=== PATIENT | male | born 1985 | race Caucasian/White ===

== ENCOUNTER 2019-04-27 18:29 | Emergency (ER) | payer MEDICAID, SELFPAY ==
--- NOTE | ~2019-04-27 | XR_ITS ---
XR foot LT min 3V 04/27/2019 18:57 INDICATION: Left foot pain PROCEDURE: 4 views left foot COMPARISON: No prior studies for comparison. FINDINGS: Fracture, dislocation or subluxation is not identified. Lisfranc joint intact. The soft tis sues appear within normal limits. No foreign bodies are identified. IMPRESSION: 1: NO ACUTE BONE OR JOINT ABNORMALITY IDENTIFIED. Reviewed, dictated and finalized at location A.
[2019-04-27 18:43] VITALS: BP 127/72; PULSE 61; RESP 20; TEMP 36.7; O2SAT 100
--- NOTE | 2019-04-27 19:18 | ED.LOWEXIN ---
HPI - Extremity Injury (Lower) General Chief Complaint: Extremity Injury, Lower Stated Complaint: left foot injury Time Seen by Provider: 04/27/19 18:43 Source: patient Mode of arrival: ambulatory Limitations: no limitations History of Present Illness HPI Narrative: This is a 33 year old male that presents to the ER for left foot pain after an injury 2 days ago. Reports he was rock climbing and pushed off of the wall and landed on his left foot. Reports since he has had swelling and pain in the left 1st metatarsal. Reports swelling and bruising to the area. Denies decreased ROM or numbness. Related Data Allergies Allergy/AdvReac Type Severity Reaction Status Date / Time No Known Allergies Allergy Verified 04/27/19 18:48 Review of Systems Review of Systems: Narrative: CONSTITUTIONAL: Denies fever MUSCULOSKELETAL: Reports joint pain, and myalgia. NEUROLOGIC: Denies numbness, or weakness. All systems reviewed & are unremarkable except as noted in HPI and below PMFSH Family History Family History (Updated 09/12/15 @ 23:19 by DOCTOR UNKNOWN) Grandparent Family history of glaucoma Family history of arthritis Family history of chronic obstructive pulmonary disease Family history of malignant neoplasm of breast Family history of irritable bowel syndrome Diabetes mellitus Father Asthma Mother Asthma Sibling Asthma Social History Social History Smoking status: Never smoker Alcohol intake: current Exam Narrative: Exam Narrative: GENERAL: Well-appearing, well-nourished, and in no acute distress. HEAD: Normocephalic, atraumatic. EYES: EOMI. EXTREMITIES: Normal range of motion. Mild swelling and bruising to the left 1st metatarsal. Normal DP pulses, normal sensation SKIN: Warm, dry, no rash. NEURO: No focal deficits. Alert and oriented x3. PSYCH: Normal mood and affect Course Vital Signs Vital signs: Vital Signs Temperature 98.0 F 04/27/19 18:43 Pulse Rate 61 04/27/19 18:43 Respiratory Rate 20 04/27/19 18:43 Blood Pressure 127/72 04/27/19 18:43 Pulse Oximetry 100 04/27/19 18:43 Temperature 98.0 F 04/27/19 18:43 Pulse Rate 61 04/27/19 18:43 Respiratory Rate 20 04/27/19 18:43 Blood Pressure 127/72 04/27/19 18:43 Pulse Oximetry 100 03/13/20 18:43 MDM - Extremity Injury (Lower) MDM Narrative Medical decision making narrative: Patient presents to the emergency department for left foot injury 2 days ago. Left foot x-ray is without acute changes. Patient will be placed in a postop shoe and reports he has crutches to use at home. He was instructed to ice, elevate and take [id number] pain medication as needed. He is to follow-up with orthopedics. Patient was given warnings to return to the ER Imaging Data Radiologist's impression: ITS Impressions Foot X-Ray 04/27/19 18:58 IMPRESSION: 1: NO ACUTE BONE OR JOINT ABNORMALITY IDENTIFIED. Critical Care Time Critical Care Time Critical Care Time: No Discharge Plan Discharge Clinical Impression: Acute pain of left foot Patient Disposition: Home, Self-Care Condition: Stable Instructions: Foot Sprain (ED) Additional Instructions: Return to the ER if you experience fever, redness and swelling of your leg, or any other symptoms that are concerning to you Wear post op shoe and use crutches. Ice and elevate extremity. Tylenol or Ibuprofen as needed for pain Follow up with orthopedic doctor Follow-up/Referrals: Vinny Banerjee MD [Physician] - 1 Week PHYSICIAN,CUSHION GUM APPLICATOR [Primary Care Provider] -
[2019-04-27 20:27] VITALS: BP 132/80; PULSE 80; RESP 20; TEMP 36.7; O2SAT 99
== END 2019-04-27 20:30 | disposition home or self-care (01) ==
PROVIDERS: Emergency Provider Emergency Medicine
DX: M79.672 Pain in left foot (principal)
CPT/HCPCS: 73630; 99283

== ENCOUNTER 2019-07-20 15:36 | Outpatient (CLI) | payer MEDICAID, SELFPAY ==
--- NOTE | ~2019-07-20 | MR_ITS ---
EXAMINATION: MR foot LT wo con DATE: 07/20/2019 16:21 INDICATION: Left foot pain TECHNIQUE: Magnetic resonance imaging (MRI) of the left fore/mid foot was performed without intraveno us contrast. Sequences included sagittal T1-weighted FSE, sagittal fluid sensitive FSE STIR, coronal PD-weighted FS FSE, coronal T1-weighted FSE, axial PD-weighted FS FSE, and axial PD-weighted FSE. COMPARISON: Radiograph dated 07/12/2019 FINDINGS: There is thickening and increased signal of less than fluid intensity of the medial collateral ligame nt complex at the first metatarsophalangeal joint consistent with moderate grade sprain/partial tear. There is no associated hallux valgus however there does appear to be slight lateral subluxation of t he first metatarsal sesamoids which is more evident on the prior radiographs suggesting the partial t ear includes the medial sesamoid collateral ligament component of the ligament complex. No definitive tear of the plantar plate. The flexor and extensor tendons appear normal. Findings suggest a valgus injury to the first metatarsophalangeal joint. Bone marrow signal is normal. No fracture. Joint space s appear relatively preserved. Physiologic amount fluid in the joint spaces. Intrinsic musculature of the foot is unremarkable. IMPRESSION: 1. Valgus injury pattern at the first metatarsophalangeal joint with partial tear of the medial colla teral ligament complex but without evident involvement of the plantar plate. Reviewed, dictated and finalized at location A. IMPRESSION: 1. Valgus injury pattern at the first metatarsophalangeal joint with partial te ar of the medial collateral ligament complex but without evident involvement of the plantar plate.
== END 2019-07-20 15:37 | disposition home or self-care (01) ==
LOC: ANHIMG 15:37
PROVIDERS: Visit Provider Nurse Practitioner Family
DX: M79.673 Pain in unspecified foot (principal); S93.692A Other sprain of left foot, initial encounter
CPT/HCPCS: 73718

== ENCOUNTER 2019-11-27 12:30 | Outpatient (RCR) | payer OTHER, SELFPAY ==
--- NOTE | 2019-08-31 11:49 | PTOPEVAL ---
Thank you for referring Keith Feliciano to [facility]. Please review, sign, date and return this plan of care KOTA. Pt referred to therapy to address leg impairments related to foot injury. He demonstrates ankle weakness, decreased ankle and foot range, increased pain and decreased performance with daily activities. Recommend additional PT 2x/wk x 4-6 wk. I agree with and certify that the following plan of care is medically necessary. Referring Physician Date Attending Provider: Vinny Banerjee MD *PT Outpatient Evaluation Start: 08/31/19 09:04 Freq: Status: Active Protocol: Document 08/31/19 09:05 AQUILES (Rec: 08/31/19 09:44 CAP [id number]) Therapy Assessment Status Assessment Status Assessment Status Evaluation Outpatient Past Medical History Past Medical History Source of Past Medical History Patient Respiratory History Hx Asthma Yes Musculoskeletal History Hx Other Musculoskeletal Disorders Yes: left hallux valgus injry for 1st MTP joint Evaluation Information Problem Diagnosis left hallux valugs Onset 04/23/19 Cause rock climbing Additional Evaluation Detail 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 He wears the bunion corrector when working. He is not able to wear the boot. Subjective Information He was rocking climb when 90% Query Text:As Reported By Patient/ of his body weight went into Family his left foot, specifically his great toe. He felt pain of his great toe with decreased stability. He was in a fracture walking boot for 3 wks. He was then given a gel bunion corrector to wear after the boot. He had f/u with MD who recommend therapy to see if surgery can be avoided. He also rides a road bike with clip in shoes. He rode 7 miles this week with min pain during the ride. He reports increased pain with walking with a normal gt. He works on his feet with increased pain and inability to wear the walking boot at work. He is working limited hours due to COVID. Diagnostic Tests X-Rays For
--- NOTE | 2019-09-24 10:52 | PCPTNOTE ---
Patient called & cancelled scheduled appointment this date needing to reschedule for Tuesday.
--- NOTE | 2019-09-28 16:33 | PCPTNOTE ---
Patient called & cancelled scheduled appointment this date due to being to sore from over doing it the day before.
--- NOTE | 2019-10-01 16:55 | PTOPEVAL ---
Thank you for referring Keith Feliciano to [facility].? The patient is scheduled to be seen for therapy? 1 x/week for 3 weeks. Please review, sign, date and return this plan of care KOTA. I agree with and certify that the following plan of care is medically necessary. Referring Physician Date Attending Provider: Vinny Banerjee MD Physical therapy progress note *PT Outpatient Evaluation Start: 08/31/19 09:04 Freq: Status: Active Protocol: Document 10/01/19 14:35 AQUILES (Rec: 10/01/19 15:23 CAP [id number]) Therapy Assessment Status Assessment Status Assessment Status Re-evaluation Outpatient Past Medical History Past Medical History Source of Past Medical History Patient Respiratory History Hx Asthma Yes Musculoskeletal History Hx Other Musculoskeletal Disorders Yes: left hallux valgus injry for 1st MTP joint Evaluation Information Problem Diagnosis left hallux valugs Onset 04/23/19 Cause rock climbing Additional Evaluation Detail 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 He wears the bunion corrector when working. He is not able to wear the boot. Subjective Information He is riding for short Query Text:As Reported By Patient/ distances on the bike without Family increased foot pain. He had increased pain when attempting to rock climb. He will have occasional pain in the foot with walking. Reports the tenderness of bottom of foot has improved. Cont pain on medial aspect of foot and great toe. He reports decreased great toe motion. He reports the more supportive shoe will decrease his foot/ toe pain. Reports the muscle spasms have improved, but cont to feel weak. He is working 2-3 days a week. He denies any significant changes in his pain. Pain Assessment Timing of Pain Assessment Timing of Pain Assessment Re-assessment Pain Scale Pain Scale Used Numeric (1 - 10) Self Report Pain Assessment Left Toe, 1st Reported Pain Level 1 Pain Description Aching Pain Frequency Intermittent Lowest Pain Intensity 0
--- NOTE | 2019-10-23 09:34 | PTOPEVAL ---
Thank you for referring Keith Feliciano to [facility].?Pt has received 11 therapy visits to address his toe/foot injury. He has achieved his therapy goals for this region with improved tolerance with fitness activities. DC skilled therapy for addressing his foot injury. He will be assessed next week for his back/SIJ pain. Please review, sign, date and return this plan of care KOTA. I agree with and certify that the following plan of care is medically necessary. 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 He wears the bunion corrector when working. He is not able to wear the boot. Subjective Information He is riding for short Query Text:As Reported By Patient/ distances on the bike without Family increased foot pain. He is able to perform rock climbing without increase pain, but he has not attempted to push into harder positions. He denies pain with walking. Reports slight pain when he places all of his weight on the ball of his foot/great toe region. He reports decreased great toe DF motion compared to right. Denies any problems with prolonged walking or standing. He has not tried a 10 mile hike. Pain Assessment Timing of Pain Assessment Timing of Pain Assessment Re-assessment Pain Scale Pain Scale Used Numeric (1 - 10) Self Report Pain Assessment Left Toe, 1st Reported Pain Level 0 Pain Description Sharp Pain Frequency Intermittent Lowest Pain Intensity 0 Greatest Pain Intensity 3 Pain Score Pain Score 0: Self Report Lower Extremity Range of Motion Ankle/Foot Range of Motion Right Ankle Dorsiflextion With Knee Extension 18 Range of Motion - Active Ankle Plantarflexion Range of Motion - 50 Active
--- NOTE | 2019-10-29 15:34 | PTOPEVAL ---
Thank you for referring Keith Feliciano to [facility].? Pt seen for initial evaluation for back pain. The patient is scheduled to be seen for therapy? 1 x/week for 6-8 weeks. Please review, sign, date and return this plan of care KOTA. I agree with and certify that the following plan of care is medically necessary. Referring Physician Date Attending Provider: Vinny Banerjee MD/ SANAM Castillo Physical Therapy evaluation for back *PT Outpatient Evaluation Start: 08/31/19 09:04 Freq: Status: Active Protocol: Document 10/29/19 09:00 AQUILES (Rec: 10/29/19 09:55 CAP [id number]) Therapy Assessment Status Assessment Status Assessment Status Evaluation Outpatient Past Medical History Past Medical History Source of Past Medical History Patient Respiratory History Hx Asthma Yes Musculoskeletal History Hx Other Musculoskeletal Disorders Yes: left hallux valgus injry for 1st MTP joint Evaluation Information Problem Diagnosis low back and SIJ pain Onset 5 months Cause unknown Subjective Information He first noticed the back pain Query Text:As Reported By Patient/ after riding bike for 3.25 Family hours. He does not have relief with the ice or NSAIDS for the pain. He is unable to indicate any movement or activity that makes it worse or better. He will at times have discomfort with trying to sleep. Diagnostic Tests X-Rays For This Problem Yes: osteophyte of hip, no back fracture Previous Treatments Previous Treatments For This Problem for toe injury Pain Assessment Timing of Pain Assessment Timing of Pain Assessment Assessment Pain Scale Pain Scale Used Numeric (1 - 10) Self Report Pain Assessment Right Lower Back Reported Pain Level 1 Pain Description Aching Pain Frequency Chronic Lowest Pain Intensity 1 Greatest Pain Intensity 3 Pain Score Pain Score 1: Self Report Cervical and Lumbar ROM Lumbar ROM Lumbar Flexion Active Ankle Query Text:Hands to: Lumbar Extension (0-40) 40 Query Text:Active in Degrees Lateral Flexion upper calf region Query Text:Active Hands to: Lumbar ROM WNL Lumbar Comments slight low back pain with trunk ext Lower Extremity Range of Motion General Lower Extremity Range of Motion Reason Not Measured WNL/Left,WNL/Right Ce
--- NOTE | 2019-11-27 13:52 | PTOPEVAL ---
Thank you for referring Keith Feliciano to [facility].?Pt has been seen for 16 therapy visits to address foot and SIJ pain. He is able to perform normal fitness routine with only minimal pain. He demonstrates normal strength and joint range without pain. He is indep with his HEP at this time. He has reached his maximal potential with skilled therapy services at this time. He has achieved his therapy goals. DC skilled PT services at this time. Please review, sign, date and return this plan of care KOTA. I agree with and certify that the following plan of care is medically necessary. Referring Physician Date Attending Provider: Vinny Banerjee MD *PT Outpatient Evaluation Start: 08/31/19 09:04 Freq: Status: Active Protocol: Document 11/27/19 12:32 [facility] (Rec: 11/27/19 13:37 [facility] [id number]) Therapy Assessment Status Assessment Status Assessment Status Re-evaluation/Discharge Note Outpatient Past Medical History Past Medical History Source of Past Medical History Patient Respiratory History Hx Asthma Yes Musculoskeletal History Hx Other Musculoskeletal Disorders Yes: left hallux valgus injry for 1st MTP joint Evaluation Information Problem Diagnosis low back and SIJ pain Onset 5 months Cause unknown Additional Evaluation Detail 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 He wears the bunion corrector when working. He is not able to wear the boot. Subjective Information HE reports his SIJ-buttock Query Text:As Reported By Patient/ region cont to feel off . His Family pain has improved but he cont to have this funny feeling. His activies of riding the bike or rock climbing do not changes in pain or symptoms. He does think the exercises are helping a little bit with his symptoms. He is performing the soft tissue mobilization with tenis ball or foam roller every other day. He denies any changes in symptoms with work task. Pain Assessment Timing of Pain Assessment Timing of Pain Assessment Re-assessment Pain Scale Pain Scale Used Numeric (1 - 10) Self Report Pain Assessment Right Lower Back Reported Pain Level 1 Pain Frequency Chronic Lowest Pain Intensity 0 Greatest Pain Intensity 4 Pain Score Pain Score 1:
== END 2019-11-29 23:59 | disposition home or self-care (01) ==
LOC: ANHPT 12:30
PROVIDERS: Visit Provider Orthopaedic Surgery
DX: S83.412D Sprain of medial collateral ligament of left knee, subsequent encounter (principal); S99.922D Unspecified injury of left foot, subsequent encounter
CPT/HCPCS: 97110; 97112; 97140; 97161; 97530

== ENCOUNTER 2020-01-05 07:44 | Outpatient (CLI) | payer OTHER, SELFPAY ==
--- NOTE | ~2020-01-05 | MR_ITS ---
EXAMINATION: MR lumbar spine wo con EXAM DATE: 01/05/2020 08:32 INDICATION: Low back pain into right hip. TECHNIQUE: Multi-sequential, multiplanar MR images of the lumbar spine were obtained without contrast . Sagittal T1, T2, T2 fat saturation images. Axial T2 weighted images. There is no prior study for comparison. FINDINGS: The vertebral bodies are aligned in the AP dimension. Vertebral body and disc heights are w ell-maintained. There are no suspicious marrow signal abnormalities. Paraspinal soft tissue is unrema rkable. Level by level evaluation: T12-L1: Disc does not extend beyond the endplate margin. Facet arthropathy: None. Neural foraminal stenosis: No stenosis. Central canal stenosis: No stenosis. L1-L2: Disc does not extend beyond the endplate margin. Facet arthropathy: None. Neural foraminal stenosis: No stenosis. Central canal stenosis: No stenosis. L2-L3: Disc does not extend beyond the endplate margin. Facet arthropathy: None. Neural foraminal stenosis: No stenosis. Central canal stenosis: No stenosis. L3-L4: Disc does not extend beyond the endplate margin. Facet arthropathy: Mild. Neural foraminal stenosis: No stenosis. Central canal stenosis: No stenosis. L4-L5: There is a minimal diffuse disc bulge. Facet arthropathy: Mild. Neural foraminal stenosis: Minimal bilateral. Central canal stenosis: No stenosis. L5-S1: Disc does not extend beyond the endplate margin. Facet arthropathy: Minimal. Neural foraminal stenosis: No stenosis. Central canal stenosis: No stenosis. IMPRESSION: 1. Minimal lumbar spondylosis. Reviewed, dictated and finalized at location A. CH AND BRACELET MAKER
== END 2020-01-05 07:45 | disposition home or self-care (01) ==
PROVIDERS: PCP Nurse Practitioner Family; Visit Provider Nurse Practitioner Family
DX: M25.551 Pain in right hip (principal); M47.817 Spondylosis without myelopathy or radiculopathy, lumbosacral region
CPT/HCPCS: 72148

== ENCOUNTER 2020-01-19 08:53 | Outpatient (CLI) | payer OTHER, SELFPAY ==
--- NOTE | ~2020-01-19 | MR_ITS ---
EXAMINATION: MR pelvis wo con DATE: 01/19/2020 10:01 INDICATION: Low back pain. Right hip pain. TECHNIQUE: Magnetic resonance imaging (MRI) of the pelvis was performed without intravenous contrast. Sequences included axial, sagittal and coronal T1-weighted FSE and T2-weighted FS FSE. COMPARISON: Radiographs dated 10/08/2019 FINDINGS: Bone alignment is normal. Normal marrow signal throughout. No fracture, osteonecrosis, reactive edema or pathologic marrow replacing process. Visualized lumbar disc spaces appear normal. Bilateral hip j oint spaces appear normal with no joint effusions. The bilateral josi appear normal although sensiti vity is lower on the larger field of view images of the pelvis than on a standard hip MRI. Normal and symmetric muscle bulk and signal in the visualized pelvis and proximal thighs. The bilateral iliopso as, gluteal and proximal hamstring tendons are normal. Visualized visceral organs in the pelvis appea r normal. No free fluid in the pelvis. No pathologically enlarged pelvic or inguinal lymphadenopathy. IMPRESSION: 1. Normal pelvic MRI. Reviewed, dictated and finalized at location A. REL PATTERNMAKER IMPRESSION: 1. Normal pelvic MRI.
== END 2020-01-19 08:54 | disposition home or self-care (01) ==
PROVIDERS: PCP Nurse Practitioner Family; Visit Provider Nurse Practitioner Family
DX: M54.5 Low back pain (principal); M25.551 Pain in right hip
CPT/HCPCS: 72195